=== PATIENT | male | born 1970 | race African-American/Black ===

== ENCOUNTER 2016-12-26 11:00 | Emergency (ER) | payer OTHER ==
--- NOTE | 2016-12-26 11:15 | EDM.PDOC ---
ED HPI GENERAL MEDICAL PROBLEM - General Chief Complaint: Upper Extremity Injury/Pain Stated Complaint: INJURY AT WORK Time Seen by Provider: 12/26/16 11:07 Source of Information: Reports: Patient History Limitations: Reports: No Limitations - History of Present Illness INITIAL COMMENTS - FREE TEXT/NARRATIVE: HISTORY AND PHYSICAL: History of present illness: [46-year-old male with no significant past medical history now status post injuries after being bumped by a forklift at his job. Patient states he was walking in a forklift bumped him on his left side he was knocked down and injured his right arm. Patient thinks it's broken. He did not hit his head or lose consciousness. Denies neck pain. Is not short of breath. He states his left ribs are sore but he has no abdominal pain or spinal pain. He had no problems standing bearing weight and walking specifically no hip or lower extremity pain. His left upper extremity is uninjured as well.] Review of systems: As per history of present illness and below otherwise all systems reviewed and negative. Past medical history: As per history of present illness and as reviewed below otherwise noncontributory. Surgical history: As per history of present illness and as reviewed below otherwise noncontributory. Social history: No reported history of drug or alcohol abuse. Family history: As per history of present illness and as reviewed below otherwise noncontributory. Physical exam: Well-appearing patient no acute distress normocephalic/ atraumatic nontender C-spine with normal painless range of motion clear lungs regular rate and rhythm no chest wall crepitus or subcutaneous air. Mild tenderness left ribs lateral distribution. No left upper quadrant tenderness denies abdominal pain. Right upper extremity tender with swelling range of motion limited by pain but neurovascularly intact with soft compartments. Bilateral lower extremities unremarkable. Nonfocal neurologic exam HEENT: Atraumatic, normocephalic, pupils reactive, negative for conjunctival pallor or scleral icterus, mucous membranes moist, throat clear, neck supple, nontender, trachea midline. Lungs: Clear to auscultation, breath sounds equal bilaterally, chest nontender. Heart: S1S2, regular, negative for clicks, rubs, or JVD. Abdomen: Soft, nondistended, nontender. Negative for masses or hepatosplenomegaly. Negative for costovertebral tenderness. Pelvis: Stable nontender. Genitourinary: Deferred. Rectal: Deferred. Extremities: Right upper extremity tenderness Atraumatic, negative for cords or calf pain. Neurovascular unremarkable. Neuro: Awake, alert, oriented. Cranial nerves II through XII unremarkable. Cerebellum unremarkable. Motor and sensory unremarkable throughout. Exam nonfocal. Diagnostics: [X-ray right humerus, right forearm, right wrist, left ribs] poss chip fx radial head, dist rad fx otherwise neg interp by me Therapeutics: [Toradol and Dilaudid IM] Impression: [] Plan: [Signs and symptoms consistent with wrist fracture confirmed by x-ray with radial styloid vertical fracture 1 mm of intra-articular step-off essentially nondisplaced. Patient also with clinical injury to the radial head with x-ray suggestive of a small radial head chip fracture with elbow effusion. CT of the abdomen and pelvis negative for injury specifically no splenic injury. Findings consistent with left chest wall contusion with no displaced rib fracture or pneumothorax. Patient with emotional component to presentation on initial evaluation making pinpointing tenderness difficult. Therefore, entire right upper extremity was imaged and was positive only with the described findings. Patient stable with unremarkable exam on reevaluation prior to discharge able to ambulate without difficulty or pain. Sugar tong splint Ortho-Glass Ramana applied to right upper extremity in sling will be applied for comfort. Case discussed with Dr. Nina Ding orthopedist ultrasound applications specialist who is aware history and findings and requests outpatient follow-up with her in the office at 9 AM. Patient aware critical importance of close follow-up with orthopedics for reevaluation and definitive fracture care. No further workup or treatment indicated at this time strict return precautions given Definitive disposition and diagnosis as appropriate pending reevaluation and review of above. R Arm Pain Score (Numeric/FACES): 10 - Related Data Allergies Allergy/AdvReac Type Severity Reaction Status Date / Time No Known Allergies Allergy Verified 12/26/16 11:12 Home Meds: Home Meds Hydrocodone/Acetaminophen [Tucker 5-325 Tablet] 1 each PO Q6H PRN #16 tablet [Rx] Review of Systems - Review of Systems Review Of Systems: See Below (Per history of present illness) ED EXAM, GENERAL - Physical Exam Exam: See Below (History of present illness) Course - Vital Signs Last Recorded V/S: Last Vital Signs Temp 36.9 C 12/26/16 11:10 Pulse 64 12/26/16 11:10 Resp 16 12/26/16 11:10 BP 161/104 H 12/26/16 11:10 Pulse Ox 98 12/26/16 11:10 - Orders/Labs/Meds Orders: Active Orders 24 hr Category Date Time Status Ice Pack [Ice Therapy] [OM.PC] Stat Oth 12/26/16 11:28 Ordered Meds: Medications Discontinued Medications Generic Name Dose Route Start Last Admin Trade Name Freq PRN Reason Stop Dose Admin Hydromorphone HCl 1 mg 12/26/16 11:24 12/26/16 11:36 Dilaudid IM 12/26/16 11:25 1 mg ONETIME ONE Administration Iopamidol 100 ml 12/26/16 12:39 12/26/16 12:41 Isovue Multipack-370 (76%) IVPUSH 12/26/16 12:40 100 ml ONETIME STA Administration Ketorolac Tromethamine 60 mg 12/26/16 11:28 12/26/16 11:37 Toradol IM 12/26/16 11:29 60 mg ONETIME ONE Administration Departure - Departure Time of Disposition: 14:33 Disposition: Home, Self-Care 01 Condition: Good Clinical Impression: Closed fracture of radial styloid, Fracture of radial head, right, closed, Contusion of left chest wall - Discharge Information Prescriptions: Hydrocodone/Acetaminophen [Tucker 5-325 Tablet] 1 each PO Q6H PRN #16 tablet PRN Reason: Breakthrough pain Instructions: Cast or Splint Care, [id number], Wrist Fracture Treated With Immobilization, [id number], Radial Head Fracture, [id number] Referrals: PCP,None [Primary Care Provider] - Forms: ED Department Discharge Additional Instructions: You have a right wrist fracture as discussed. It appears also a small chip fracture of your proximal radius also known as your "radial head. "Wear splint and sling as needed for comfort until follow-up with the orthopedic doctor Nina Ding this at 9 AM in her office. No need to call, Dr. Ding will be expecting you at 9 AM on . Take 800 mg of ibuprofen every 6 hours and take Tucker as needed for breakthrough pain. You can remove the sling to range of motion your shoulder as frequently as possible however do not remove the splint until follow-up with Dr. Ding. - My Orders Last 24 Hours: My Active Orders 12/26/16 11:28 Ice Pack [Ice Therapy] [OM.PC] Stat - Assessment/Plan Last 24 Hours: My Active Orders 12/26/16 11:28 Ice Pack [Ice Therapy] [OM.PC] Stat
[2016-12-26] MEDS ORDERED: HYDROmorphone 1 MG/ML Syringe IM ONE (11:24)
[2016-12-26] MEDS ORDERED: Ketorolac 60 MG/2 ML SDV IM ONE (11:28)
[2016-12-26] MEDS ORDERED: Iopamidol 755 MG/ML 500 ML Multipack Bottle IVPUSH STA (12:39)
--- NOTE | 2016-12-26 13:13 | CR ---
EXAMINATION: Chest and left ribs HISTORY: Left chest wall injury. FINDINGS: The trachea is midline. The cardiomediastinal silhouette is within normal limits. No pulmonary infilt rates, effusions or pneumothorax. Osseous structures appear unremarkable. No displaced rib fracture identified. IMPRESSION: No acute cardiopulmonary process.
--- NOTE | 2016-12-26 13:19 | CR ---
EXAMINATION: Right humerus, Right forearm and right wrist HISTORY: Pain COMPARISON: None TECHNIQUE: 2 views of the right humerus, 2 views of the right forearm, and 3 views of the right wrist FINDINGS: There is an essentially nondisplaced vertical distal radius fracture with intra-articular e xtension. The radial carpal and radiocapitellar alignments are preserved. Bone mineralization is othe rwise normal. No elbow joint effusion there is possibly a tiny chip fracture along the anterior aspec t of the radial head. However this is only noted on the lateral humerus and could be artifactual. IMPRESSION: 1. Vertical radial styloid fracture, essentially nondisplaced. 2. Possible tiny chip fracture along the anterior aspect of the radial head, this is only noted on a single image and may be artifactual. Correlate with focal pain.
--- NOTE | 2016-12-26 13:47 | CT ---
CT of the abdomen and pelvis with contrast. HISTORY: Injury TECHNIQUE: Axial CT images were obtained of the abdomen and pelvis following administration of 100 mL of Isovue-370 without complication. Coronal and sagittal reconstructions obtained. FINDINGS: The lung bases are clear, no pleural effusion or pneumothorax. Mild dependent atelectasis. The liver, spleen, adrenal glands, and pancreas appear normal. The gallbladder is normal. No bulky re troperitoneal lymphadenopathy or abdominal ascites. The kidneys enhance and function symmetrically without evidence of obstructive uropathy. The large and small bowel are normal in caliber without evidence of obstruction. No focal pericolonic inflammation or stranding. The appendix is normal. The urinary bladder is normal. No bulky pelvic ly mphadenopathy or free pelvic fluid. No suspicious osseous abnormalities identified. IMPRESSION: 1. No acute findings demonstrated within the abdomen or pelvis.
--- NOTE | 2016-12-26 14:01 | CR ---
EXAMINATION: Right elbow HISTORY: Fall COMPARISON: Humerus from the same day TECHNIQUE: 3 views FINDINGS: There is no acute osseous abnormality, dislocation, or fracture. There is a small joint eff usion is not excluded. There is a small ossific density projecting along the tip of the coronoid proc ess, likely soft tissue calcification. IMPRESSION: 1. No definite acute osseous abnormality. 2. Possible small elbow joint effusion.
[2016-12-26 15:06] VITALS: BP 135/89
== END 2016-12-26 15:06 | disposition home or self-care (01) ==
LOC: MW.ED 11:00
DX: S52.511A Displaced fracture of right radial styloid process, initial encounter for closed fracture (principal); S52.121A Displaced fracture of head of right radius, initial encounter for closed fracture; S20.212A Contusion of left front wall of thorax, initial encounter; W22.09XA Striking against other stationary object, initial encounter; Y99.0 Civilian activity done for income or pay
CPT/HCPCS: 71101; 73060; 73080; 73090; 73110; 74177; 96372; 99284; A4566; J1170; J1885; Q9967; 99282

== ENCOUNTER 2018-11-02 12:40 | Emergency (ER) | payer OTHER ==
[2018-11-02] MEDS ORDERED: Alum Hydrox/Mag Hydrox/Simeth 15 ML, Metoclopramide 5 MG, Lidocaine 2% 5 ML PO ONE ×3 (13:15)
[2018-11-02] MEDS ORDERED: Pantoprazole 40 MG Vial IVPUSH ONE (13:15)
[2018-11-02] MEDS ORDERED: Sodium Chloride 0.9% 2.5 ML Syringe FLUSH PRN (13:15)
[2018-11-02] MEDS ORDERED: Sodium Chloride 0.9% 10 ML Syringe FLUSH PRN (13:15)
--- NOTE | 2018-11-02 13:19 | EDM.PDOC ---
ED HPI GENERAL MEDICAL PROBLEM - General Chief Complaint: Gastrointestinal Problem Stated Complaint: HEARTBURN Time Seen by Provider: 11/02/18 13:02 - History of Present Illness INITIAL COMMENTS - FREE TEXT/NARRATIVE: HISTORY AND PHYSICAL: History of present illness: The patient is a 47-year-old male who denies any pre-existing GI cardiac history or any abdominal surgical procedures and presents with over 6 months of complaints of heartburn-like discomfort starting from the back of his throat extending down to his epigastric area. He says that the discomfort comes and goes and it is worse when he wakes in the morning or in the middle the night to get better as the day goes on. He says he doesn't have chest pain per se and no shortness of breath no fevers chills nausea or vomiting. He has had no black or bloody stools and no diarrhea. He tells me he has tried multiple over-the- counter medications and nothing has helped but he has not seen her provider prior to this ER visit. He also complains of some episodic left upper quadrant discomfort which he says is a deep achy like sensation that he has difficulty describing. Currently in the ER he is not having any burning sensation in his throat or abdomen and has only minimal left upper quadrant pain. He tells me that acidic foods like tomatoes and spices will aggravate the burning-like sensation and it is not triggered by fatty foods like cheese. Patient says he only drinks alcohol once in a while. Review of systems: As per history of present illness and below otherwise all systems reviewed and negative. Past medical history: As per history of present illness and as reviewed below otherwise noncontributory. Surgical history: As per history of present illness and as reviewed below otherwise noncontributory. Social history: No reported history of drug or alcohol abuse. Family history: As per history of present illness and as reviewed below otherwise noncontributory. Physical exam: General: Well-developed well-nourished man who is nontoxic and vital signs are noted by me HEENT: Atraumatic, normocephalic, negative for conjunctival pallor or scleral icterus, mucous membranes moist, throat clear, neck supple, nontender, trachea midline. Lungs: Clear to auscultation, breath sounds equal bilaterally, chest nontender. Heart: S1S2, regular rate and rhythm no overt murmurs Abdomen: Soft, nondistended, nontender. NABS, no tympany on percussion of the upper abdomen and no rebound guarding or any tenderness on palpation. Negative for masses or hepatosplenomegaly. Negative for costovertebral tenderness. Pelvis: Deferred Genitourinary: Deferred. Rectal: Deferred. Extremities: Atraumatic, negative for cords or calf pain. Neurovascular unremarkable. Neuro: Awake, alert, oriented. Cranial nerves II through XII unremarkable. Cerebellum unremarkable. Motor and sensory unremarkable throughout. Exam nonfocal. Diagnostics: EKG, abdominal series with chest x-ray, CBC CMP troponin amylase lipase Therapeutics: IV placement, Protonix IV GI cocktail Patient says that he does feel improved although he did not have much discomfort at this time. I discussed with them testing results and that I will place him on Protonix and Carafate and refer him to our surgery clinic as he will need further evaluation and possible endoscopy. He states understanding. Impression: Chronic dyspepsia and epigastric/left upper quadrant pain Definitive disposition and diagnosis as appropriate pending reevaluation and review of above. Left Upper Abdomen Pain Score (Numeric/FACES): 9 - Related Data Allergies Allergy/AdvReac Type Severity Reaction Status Date / Time No Known Allergies Allergy Verified 11/02/18 13:04 Home Meds: Home Meds . [No Known Home Meds] 11/02/18 [History] Past Medical History - Past Health History Medical/Surgical History: Denies Medical/Surgical History - Past Surgical History GI Surgical History: Reports: Other (See Below) Other GI Surgeries/Procedures: stomach surgery 25 years ago Social & Family History - Family History Family Medical History: Noncontributory - Tobacco Use Smoking Status *Q: Never Smoker - Caffeine Use Caffeine Use: Reports: Coffee - Recreational Drug Use Recreational Drug Use: No ED ROS GENERAL - Review of Systems Review Of Systems: ROS reveals no pertinent complaints other than HPI. ED EXAM, GENERAL - Physical Exam Exam: See Below (see dictation) Course - Vital Signs Last Recorded V/S: Last Vital Signs Temp 36.1 C 11/02/18 13:01 Pulse 65 11/02/18 13:01 Resp 18 11/02/18 13:01 BP 148/93 H 11/02/18 13:01 Pulse Ox 95 11/02/18 13:01 - Orders/Labs/Meds Orders: Active Orders 24 hr Category Date Time Status EKG Documentation Completion [RC] STAT Care 11/02/18 13:04 Active Sodium Chloride 0.9% [Saline Flush] Med 11/02/18 13:15 Active 10 ml FLUSH ASDIRECTED PRN Sodium Chloride 0.9% [Saline Flush] Med 11/02/18 13:15 Active 2.5 ml FLUSH ASDIRECTED PRN Saline Lock Insert [OM.PC] Stat Oth 11/02/18 13:14 Ordered Medication Orders Sodium Chloride (Saline Flush) 10 ml FLUSH ASDIRECTED PRN PRN Reason: Keep Vein Open Last Admin: 11/02/18 13:30 Dose: 10 ml Sodium Chloride (Saline Flush) 2.5 ml FLUSH ASDIRECTED PRN PRN Reason: Keep Vein Open Last Admin: 11/02/18 13:30 Dose: 2.5 ml Labs: Laboratory Tests 11/02/18 11/02/18 Range/Units 13:28 13:28 WBC 6.42 (4.0-11.0) K/uL RBC 4.87 (4.50-5.90) M/uL Hgb 14.4 (13.0-17.0) g/dL Hct 41.3 (38.0-50.0) % MCV 84.8 (80.0-98.0) fL MCH 29.6 (27.0-32.0) pg MCHC 34.9 (31.0-37.0) g/dL RDW Std Deviation 40.1 (28.0-62.0) fl RDW Coeff of Rhianna 13 (11.0-15.0) % Plt Count 191 (150-400) K/uL MPV 11.10 (7.40-12.00) fL Neut % (Auto) 58.4 (48.0-80.0) % Lymph % (Auto) 29.3 (16.0-40.0) % Travis % (Auto) 10.9 (0.0-15.0) % Eos % (Auto) 1.2 (0.0-7.0) % Baso % (Auto) 0.2 (0.0-1.5) % Neut # (Auto) 3.8 (1.4-5.7) K/uL Lymph # (Auto) 1.9 (0.6-2.4) K/uL Travis # (Auto) 0.7 (0.0-0.8) K/uL Eos # (Auto) 0.1 (0.0-0.7) K/uL Baso # (Auto) 0.0 (0.0-0.1) K/uL Nucleated RBC % 0.0 /100WBC Nucleated RBCs # 0 K/uL Sodium 138 (136-148) mmol/L Potassium 4.0 (3.5-5.1) mmol/L Chloride 104 (98-107) mmol/L Carbon Dioxide 25.6 (21.0-32.0) mmol/L BUN 17 (7.0-18.0) mg/dL Creatinine 0.8 (0.8-1.3) mg/dL Est Cr Clr Drug Dosing 101.43 mL/min Estimated GFR (MDRD) > 60.0 ml/min Glucose 101 (74-106) mg/dL Calcium 9.4 (8.5-10.1) mg/dL Total Bilirubin 0.3 (0.2-1.0) mg/dL AST 27 (15-37) IU/L ALT 43 (14-63) IU/L Alkaline Phosphatase 70 (46-116) U/L Troponin I < 0.050 (0.000-0.056) ng/mL Total Protein 8.0 (6.4-8.2) g/dL Albumin 4.0 (3.4-5.0) g/dL Globulin 4.0 (2.6-4.0) g/dL Albumin/Globulin Ratio 1.0 (0.9-1.6) Amylase 103 (25-115) U/L Lipase 144 (73-393) U/L Meds: Medications Generic Name Dose Route Start Last Admin Trade Name Freq PRN Reason Stop Dose Admin Sodium Chloride 10 ml 11/02/18 13:15 11/02/18 13:30 Saline Flush FLUSH 10 ml ASDIRECTED PRN Administration Keep Vein Open Sodium Chloride 2.5 ml 11/02/18 13:15 11/02/18 13:30 Saline Flush FLUSH 2.5 ml ASDIRECTED PRN Administration Keep Vein Open Discontinued Medications Generic Name Dose Route Start Last Admin Trade Name Freq PRN Reason Stop Dose Admin Al Hydroxide/Mg Hydroxide 15 0 ml 11/02/18 13:15 11/02/18 13:28 ml/ Metoclopramide HCl 5 mg/ PO 11/02/18 13:16 25 each Lidocaine HCl 5 ml ONETIME ONE Administration Sodium Chloride Confirm 11/02/18 13:21 11/02/18 13:29 Normal Saline Administered 11/02/18 13:22 20 mls/hr Dose Administration 20 mls @ as directed .ROUTE .STK-MED ONE Pantoprazole Sodium 80 mg 11/02/18 13:15 11/02/18 13:30 Protonix Iv IVPUSH 11/02/18 13:16 80 mg .BOLUS ONE Administration Departure - Departure Time of Disposition: 14:28 Disposition: Home, Self-Care 01 Condition: Good Clinical Impression: Dyspepsia, Abdominal pain - Discharge Information Referrals: PCP,Unknown [Primary Care Provider] - Forms: ED Department Discharge Additional Instructions: The following information is given to patients seen in the emergency department who are being discharged to home. This information is to outline your options for follow-up care. We provide all patients seen in our emergency department with a follow-up referral. The need for follow-up, as well as the timing and circumstances, are variable depending upon the specifics of your emergency department visit. If you don't have a primary care physician on staff, we will provide you with a referral. We always advise you to contact your personal physician following an emergency department visit to inform them of the circumstance of the visit and for follow-up with them and/or the need for any referrals to a consulting specialist. The emergency department will also refer you to a specialist when appropriate. This referral assures that you have the opportunity for followup care with a specialist. All of these measure are taken in an effort to provide you with optimal care, which includes your followup. Under all circumstances we always encourage you to contact your private physician who remains a resource for coordinating your care. When calling for followup care, please make the office aware that this follow-up is from your recent emergency room visit. If for any reason you are refused follow-up, please contact the [facility] emergency department at and ask to speak to the emergency department charge nurse. [facility] Professional Building [address] [place] [phone] Please try to eliminate the foods that trigger your discomfort such as acidic foods and spices. A bland diet until you're followed up in the clinic, push hydration and avoid alcohol and caffeinated products. Please take medications as prescribed to and please contact our clinic providers as you may need further testing and possible endoscopy to evaluate if you have early ulcer disease. Return to ER as needed and as discussed - My Orders Last 24 Hours: My Active Orders 11/02/18 13:04 EKG Documentation Completion [RC] STAT 11/02/18 13:14 Saline Lock Insert [OM.PC] Stat 11/02/18 13:15 Sodium Chloride 0.9% [Saline Flush] 10 ml FLUSH ASDIRECTED PRN Sodium Chloride 0.9% [Saline Flush] 2.5 ml FLUSH ASDIRECTED PRN - Assessment/Plan Last 24 Hours: My Active Orders 11/02/18 13:04 EKG Documentation Completion [RC] STAT 11/02/18 13:14 Saline Lock Insert [OM.PC] Stat 11/02/18 13:15 Sodium Chloride 0.9% [Saline Flush] 10 ml FLUSH ASDIRECTED PRN Sodium Chloride 0.9% [Saline Flush] 2.5 ml FLUSH ASDIRECTED PRN
[2018-11-02] MEDS ORDERED: Sodium Chloride 0.9% 20 ML ONE (13:21)
[2018-11-02 14:05] LABS: BLOOD UREA NITROGEN,BUN 17 mg/dL (7.0-18.0); CARBON DIOXIDE,CO2 25.6 mmol/L (21.0-32.0); CHLORIDE,CL 104 mmol/L (98-107); GLUCOSE RANDOM 101 mg/dL (74-106); LIPASE 144 U/L (73-393); SODIUM,NA 138 mmol/L (136-148)
--- NOTE | 2018-11-02 14:21 | CR ---
Indication: Abdominal pain Technique: Frontal view chest, supine and upright views abdomen Comparison: None Findings/Impression: : Normal cardiomediastinal silhouette. Calcified granuloma in the left midlung. No focal infiltrate, effusion, or pneumothorax. Nonspecific bowel gas pattern. Moderate amount of feces throughout the colon. No free air or pneumatosis. Osseous structures intact. Dictated by Lianet Johnson MD @ Nov 02 2018 2:21PM Signed by Dr. Lianet Johnson @ Nov 02 2018 2:21PM
[2018-11-02 14:39] VITALS: BP 141/91; PULSE 69
== END 2018-11-02 14:39 | disposition home or self-care (01) ==
LOC: MW.ED 12:40
DX: R10.13 Epigastric pain (principal); R10.12 Left upper quadrant pain
CPT/HCPCS: 36415; 74022; 80053; 82150; 83690; 84484; 85025; 93005; 96374; 99284; A9270; C9113

== ENCOUNTER 2020-01-06 09:18 | Day surgery (SDC) | payer BC, OTHER ==
[~2020-01-06 09:18] MED LIST: Lactated Ringers 1,000 ML IV SCH
[2020-01-06] MEDS ORDERED: fentaNYL 100 MCG/2 ML SDV ONE (09:37)
[2020-01-06] MEDS ORDERED: Propofol 200 MG/20 ML SDV ONE (09:37)
[2020-01-06] MEDS ORDERED: Lidocaine 2% 5 ML SDV ONE (09:37)
--- NOTE | 2020-01-06 09:49 | PCM.PREANE ---
Preanesthetic Assessment - Procedure Proposed Procedure: egd - Anesthesia/Transfusion/Family Hx Anesthesia History: Prior Anesthesia Without Reaction Family History of Anesthesia Reaction: No Transfusion History: No Prior Transfusion(s) - Review of Systems General: No Symptoms Pulmonary: No Symptoms Cardiovascular: No Symptoms Gastrointestinal: No Symptoms Neurological: No Symptoms Other: Reports: None - Physical Assessment NPO Status Date: 01/05/20 NPO Status Time: 23:00 Height: 5 ft 9 in Weight: 101.605 kg ASA Class: 2 Mental Status: Alert & Oriented x3 Airway Class: Mallampati = 1 Dentition: Reports: Normal Dentition, [place](s) (3 front teeth) Thyro-Mental Finger Breadths: 3 Mouth Opening Finger Breadths: 3 ROM/Head Extension: Full Lungs: Clear to Auscultation, Normal Respiratory Effort Cardiovascular: Regular Rate, Regular Rhythm - Allergies Allergies/Adverse Reactions: Allergies Allergy/AdvReac Type Severity Reaction Status Date / Time Pork/Porcine Containing Allergy Hypertensio Verified 12/31/19 14:09 Products n - Blood Blood Available: No - Anesthesia Plan Pre-Op Medication Ordered: None - Acknowledgements Anesthesia Type Planned: MAC Pt an Appropriate Candidate for the Planned Anesthesia: Yes Alternatives and Risks of Anesthesia Discussed w Pt/Guardian: Yes Pt/Guardian Understands and Agrees with Anesthesia Plan: Yes PreAnesthesia Questionnaire - Past Health History Medical/Surgical History: Denies Medical/Surgical History HEENT History: Reports: Other (See Below) Other HEENT History: uses reading glasses Gastrointestinal History: Reports: GERD Musculoskeletal History: Reports: Fracture Other Musculoskeletal History: fx of right hand/elbow Endocrine/Metabolic History: Reports: Obesity/BMI 30+ - Past Surgical History Head Surgeries/Procedures: Reports: None GI Surgical History: Reports: Other (See Below) Other GI Surgeries/Procedures: Exploratory Laparotomy as a teenager for abdominal pain - SUBSTANCE USE Smoking Status *Q: Never Smoker Recreational Drug Use History: No - HOME MEDS Home Medications: Home Meds . [No Known Home Meds] 11/02/18 [History] - CURRENT (IN HOUSE) MEDS Current Meds: Current Medications Lactated Ringer's (Ringers, Lactated) 1,000 mls @ 125 mls/hr IV ASDIRECTED [facility] Last Admin: 01/06/20 09:45 Dose: 125 mls/hr Documented by: Discontinued Medications Fentanyl (Sublimaze) Confirm Administered Dose 100 mcg .ROUTE .STK-MED ONE Stop: 01/06/20 09:38 Lidocaine (Xylocaine-Mpf 2%) Confirm Administered Dose 5 ml .ROUTE .STK-MED ONE Stop: 01/06/20 09:38 Propofol (Diprivan 20 Ml) Confirm Administered Dose 200 mg .ROUTE .STK-MED ONE Stop: 01/06/20 09:38
--- NOTE | 2020-01-06 10:18 | PCM.OPNOTE ---
- General Post-Op/Procedure Note Date of Surgery/Procedure: 01/06/20 Operative Procedure(s): Esophagogastroduodenoscopy with gastric and esophageal biopsy Pre Op Diagnosis: Progressive heartburn. Left upper abdominal pain. Post-Op Diagnosis: Chronic gastritis. Acute esophagitis with superficial erosion/ulceration Anesthesia Technique: MAC (ASA II) Primary Surgeon: Maurizio Balbuena Electronic Gluer: Flynn Thomas Condition: Good Free Text/Narrative:: DICTATION [id number] CPT CODE 01297
--- NOTE | 2020-01-06 10:24 | PCM.POSTAN ---
POST ANESTHESIA ASSESSMENT - MENTAL STATUS Mental Status: Alert, Oriented - VITAL SIGNS Vital Signs: Last Vital Signs Temp 36.4 C 01/06/20 09:35 Pulse 78 01/06/20 10:22 Resp 16 01/06/20 10:22 BP 123/82 01/06/20 10:22 Pulse Ox 97 01/06/20 10:22 - RESPIRATORY Respiratory Status: Respiratory Rate WNL, Airway Patent, O2 Saturation Stable - CARDIOVASCULAR CV Status: Pulse Rate WNL, Blood Pressure Stable - GASTROINTESTINAL GI Status: No Symptoms - PAIN Pain Score: 0
[2020-01-06] MEDS ORDERED: Lactated Ringers 1,000 ML IV SCH (10:30)
--- NOTE | 2020-01-06 10:52 | PCM48HPAN ---
Post Anesthesia Note - EVALUATION WITHIN 48HRS OF ANESTHETIC Vital Signs in Normal Range: Yes Patient Participated in Evaluation: Yes Respiratory Function Stable: Yes Airway Patent: Yes Cardiovascular Function Stable: Yes Hydration Status Stable: Yes Pain Control Satisfactory: Yes Nausea and Vomiting Control Satisfactory: Yes Mental Status Recovered: Yes Vital Signs: Last Vital Signs Temp 97.5 F 01/06/20 09:35 Pulse 78 01/06/20 10:22 Resp 16 01/06/20 10:22 BP 123/82 01/06/20 10:22 Pulse Ox 97 01/06/20 10:22
[2020-01-06 13:16] VITALS: BP 132/70; PULSE 77
--- NOTE | 2020-01-06 17:29 | OR ---
SURGEON: Maurizio Balbuena M.D. DATE OF PROCEDURE: 01/06/2020 OPERATION PERFORMED: Esophagogastroduodenoscopy with gastric and esophageal biopsies. PRIMARY SURGEON: Maurizio Balbuena M.D. ANESTHESIA: MAC. ASA CLASSIFICATION: II. PREOPERATIVE DIAGNOSES: Progressive heartburn with left-sided abdominal pain. POSTOPERATIVE DIAGNOSES: 1. Acute esophagitis. 2. Chronic gastritis. DESCRIPTION OF PROCEDURE: The patient was taken to the endoscopy room and positioned on the endoscopy table in the supine position. Time-out was called for appropriate identification of the patient and procedure. Monitored anesthesia care was provided. The bite block was placed between the patient's teeth. The gastroscope was inserted through the bite block into the oropharynx and advanced without difficulty through the esophagus and stomach, into the duodenum where examination was carried out in a retrograde fashion. The duodenum showed no acute inflammatory changes or ulcerations. The stomach did show mild-to- moderate chronic gastritis. Antral biopsies were obtained to look for the presence of Helicobacter pylori. The gastroscope was then retroflexed to visualize the proximal stomach. No significant hiatal hernia was noted in a retroflexed view. No lesions were identified in the proximal stomach. Specifically, no tumors or polyps were seen. The gastroscope was then straightened and slowly withdrawn. The distal esophagus did show an acute esophagitis with what appeared to be superficial ulcerations. Separate biopsies of this area were obtained. The Z-line was at approximately 39 cm. The gastroscope was then slowly withdrawn. The esophagus itself demonstrated good contractility. No mid or proximal lesions were identified. The vocal cords were briefly visualized as the scope was withdrawn and were noted to move symmetrically. No vocal cord lesions or erythema were noted. The gastroscope was then removed with the patient having tolerated the procedure well. He was taken to recovery room in stable condition. DARYA / GUI /[id number]
== END 2020-01-06 11:20 | disposition home or self-care (01) ==
LOC: MW.SDS 09:18
PROVIDERS: ATTEND Surgery
DX: K29.00 Acute gastritis without bleeding (principal); K29.50 Unspecified chronic gastritis without bleeding; K20.90 Esophagitis, unspecified without bleeding; E66.9 Obesity, unspecified; B96.89 Other specified bacterial agents as the cause of diseases classified elsewhere; Z98.890 Other specified postprocedural states; Z91.018 Allergy to other foods; Z68.33 Body mass index [BMI] 33.0-33.9, adult
CPT/HCPCS: 43239; 88305; 88312; J2001; J2704; J3010; J7120; 00731

== ENCOUNTER 2024-11-23 12:25 | Emergency (ER) | payer SELFPAY ==
[2024-11-23 12:41] VITALS: BP 158/89; PULSE 76
[2024-11-23 13:04] LABS: APPEARANCE,URINE CLEAR; GLUCOSE,URINE NEGATIVE (NEGATIVE); OCCULT BLOOD,URINE NEGATIVE (NEGATIVE)
[2024-11-23 14:33] LABS: C. TRACHOMATIS BY PCR NOT DETECTED; N. GONORRHOEAE BY PCR NOT DETECTED
== END 2024-11-23 14:55 | disposition home or self-care (01) ==
LOC: MW.ED 12:25
DX: N34.2 Other urethritis (principal); Z91.018 Allergy to other foods; Z79.899 Other long term (current) drug therapy
CPT/HCPCS: 81003; 87491; 87591; 99283; A9270